=== PATIENT | female | born 1975 | race Caucasian/White ===

== ENCOUNTER 2020-05-12 15:01 | Inpatient (IN) | payer OTHER ==
[~2020-05-12] VITALS: Ht 160 cm; Wt 70.3 kg
[2020-05-12] MEDS ORDERED: FLAGYL500MG (15:08)
--- NOTE | 2020-05-12 15:08 | NUR ---
SE RECIBE PTE ALERTA Y ORIENTADA X3,REFIERE TENER DOLOR ABDOMINAL ,LA REFIERE EL DR.MUNOZ CRAFTCTO A LA RADHAMES DE ER.
== END 2020-05-18 10:48 | disposition home or self-care (01) | DRG 378 ==
LOC: ER 15:01 → SEC-K 16:46 → MEDI 16:46
PROVIDERS: ADMIT Internal Medicine; ATTEND Internal Medicine
PROC: BW21Y0Z Computerized Tomography (CT Scan) of Abdomen and Pelvis using Other Contrast, Unenhanced and Enhanced (ICD-10-PCS; principal; 2020-05-12)
DX: K57.33 Diverticulitis of large intestine without perforation or abscess with bleeding (principal); K51.911 Ulcerative colitis, unspecified with rectal bleeding; I49.8 Other specified cardiac arrhythmias; Z20.828 Contact with and (suspected) exposure to other viral communicable diseases

== ENCOUNTER 2025-02-13 13:56 | Inpatient (IN) | payer OTHER ==
[~2025-02-13] VITALS: Ht 160 cm; Wt 68.0 kg
[~2025-02-13 13:56] MED LIST: FLAGYL500MG
[2025-02-13] MEDS ORDERED: CORGARD80 M1 PO (14:19)
[2025-02-13] MEDS ORDERED: KETOROLAC TROMETHAMINE 30 MG VIAL ONE (15:37)
[2025-02-13] MEDS ORDERED: ONDANSETRON HCL 2 MG/ML VIAL ONE (15:37)
[2025-02-13] MEDS ORDERED: FAMOTIDINE/PF 20 MG/2 ML VIAL ONE (15:38)
[2025-02-13] MEDS ORDERED: FAMOTIDINE/PF 20 MG/2 ML VIAL IV ONE (15:45)
[2025-02-13] MEDS ORDERED: 0.9 % SODIUM CHLORIDE 500 ML IV ONE (15:45)
[2025-02-13] MEDS ORDERED: KETOROLAC TROMETHAMINE 30 MG VIAL IV ONE (15:45)
[2025-02-13] MEDS ORDERED: ONDANSETRON HCL 2 MG/ML VIAL IV ONE (15:45)
[2025-02-13 16:25] LABS: BASO % 0.3 % (0.1-1.2); EOS # 0.03 (0.04-0.54); EOS % 0.2 % (0.7-7.0); HEMATOCRIT 41.4 % (34.1-44.9); HEMOGLOBIN 14.2 g/dL (11.2-15.7); LYMPH # 1.24 (1.18-3.74); LYMPH % 8.6 % (19.3-53.1); MEAN CORPUSCULAR HEMOGLOBIN 29.9 pg (25.6-32.2); MONO # 0.97 (0.24-0.82); MONO % 6.7 % (4.7-12.5); NEUT # 12.06 (1.56-6.13); NEUT % 83.9 % (34.0-71.1); PLATELET COUNT 251 K/uL (163-369); RED BLOOD COUNT 4.75 M/uL (3.93-5.22); RED CELL DISTRIBUTION WIDTH 12.5 % (11.6-14.4)
[2025-02-13 16:33] LABS: PH,URINE 5.5 (5.0-8.0); URINE APPEARANCE Clear; URINE BILIRRUBIN Negative (NEGATIVE); URINE BLOOD Moderate; URINE COLOR Yellow; URINE GLUCOSE Negative (NEGATIVE); URINE LEUKOCYTE Trace; URINE NITRATE Negative; URINE PROTEIN Negative (NEGATIVE); URINE UROBILINOGEN 0.2 E.U./dl
[2025-02-13 16:37] LABS: URINE BACTERIA 124.8 uL (0.0-1933); URINE EPITHELIAL CELLS 4.5 uL (0.0-38.8); URINE RBC 66.1 uL (0.0-20.8)
[2025-02-13 16:38] LABS: INR 1.06; PARTIAL THROMBOPLASTIN TIME 29.8 SECONDS (22.0-34.0); PROTHROMBIN TIME 11.5 SECONDS (9.0-11.5)
[2025-02-13 16:44] LABS: ALBUMIN 3.9 gm/dL (3.4-5.0); BILIRUBIN TOTAL 0.82 mg/dL (0.3-1.2); CALCIUM 8.9 mg/dL (8.5-10.1); CREATININE SERUM 0.72 mg/dL (0.55-1.02); GFR 85.4; POTASSIUM 3.61 mEq/L (3.5-5.1); TOTAL PROTEIN 7.9 gm/dL (6.4-8.2)
[2025-02-13 16:53] LABS: URINE KETONE 40 (NEGATIVE); URINE WBC 0.9 uL (0.0-23.2)
[2025-02-13] MEDS ORDERED: PIPERACILLIN/TAZOBACTAM SODIUM 3.375 GM VIAL IV ONE ×2 (17:45→17:59)
[2025-02-13] MEDS ORDERED: MORPHINE SULFATE 4 MG/ML VIAL IV ONE (19:45)
[2025-02-13] MEDS ORDERED: ONDANSETRON HCL 4 MG in 0.9 % SODIUM CHLORIDE 50 ML IV PRN (21:00)
[2025-02-13] MEDS ORDERED: 0.9 % SODIUM CHLORIDE 1,000 ML IV SCH (21:00)
[2025-02-13] MEDS ORDERED: ACETAMINOPHEN 500 MG GEL..CAP PO PRN (21:00)
[2025-02-13] MEDS ORDERED: MORPHINE SULFATE 2 MG/ML CARTRIDGE IV PRN (21:00)
[2025-02-14] MEDS ORDERED: PIPERACILLIN/TAZOBACTAM SODIUM 3.375 GM in DEXTROSE 5 % IN WATER 100 ML IV SCH
[2025-02-14] MEDS ORDERED: PIPERACILLIN/TAZOBACTAM SODIUM 3.375 GM VIAL IV ONE (00:22)
[2025-02-14 02:53] VITALS: BP 145/79; O2SAT 95
[2025-02-14 08:00] VITALS: BP 127/76; O2SAT 98
[2025-02-14] MEDS ORDERED: ENOXAPARIN SODIUM 40 MG/0.4 ML SYRINGE SUBCUTANEO SCH (09:00)
[2025-02-14] MEDS ORDERED: FAMOTIDINE/PF 20 MG in 0.9 % SODIUM CHLORIDE 8 ML IV PUSH SCH (09:00)
[2025-02-14] MEDS ORDERED: NADOLOL 20 MG TABLET PO SCH (09:00)
[2025-02-14] MEDS ORDERED: KETOROLAC TROMETHAMINE 30 MG VIAL IV PRN (10:45)
[2025-02-14] MEDS ORDERED: KETOROLAC TROMETHAMINE 30 MG VIAL ONE (12:11)
[2025-02-14] MEDS ORDERED: KETOROLAC TROMETHAMINE 30 MG VIAL IV SCH (17:00)
[2025-02-14 17:23] VITALS: BP 133/86
[2025-02-15 01:43] VITALS: BP 115/67; O2SAT 96
[2025-02-15 07:46] LABS: BASO % 0.7 % (0.1-1.2); EOS # 0.19 (0.04-0.54); EOS % 2.2 % (0.7-7.0); HEMATOCRIT 36.7 % (34.1-44.9); HEMOGLOBIN 12.6 g/dL (11.2-15.7); LYMPH # 1.09 (1.18-3.74); LYMPH % 12.7 % (19.3-53.1); MEAN CORPUSCULAR HEMOGLOBIN 30.1 pg (25.6-32.2); MONO # 0.71 (0.24-0.82); MONO % 8.2 % (4.7-12.5); NEUT # 6.53 (1.56-6.13); NEUT % 75.9 % (34.0-71.1); PLATELET COUNT 220 K/uL (163-369); RED BLOOD COUNT 4.19 M/uL (3.93-5.22); RED CELL DISTRIBUTION WIDTH 12.3 % (11.6-14.4)
[2025-02-15 10:14] VITALS: BP 129/72; O2SAT 98
[2025-02-15 17:08] VITALS: BP 136/82
[2025-02-16 01:15] VITALS: BP 122/79
[2025-02-16 09:42] VITALS: BP 133/77; O2SAT 98
== END 2025-02-16 13:29 | disposition home or self-care (01) | DRG 392 ==
LOC: ER 15:13 → MEDI 21:33
PROVIDERS: General Practice; ADMIT Internal Medicine; ATTEND Internal Medicine
PROC: BW21ZZZ Computerized Tomography (CT Scan) of Abdomen and Pelvis (ICD-10-PCS; principal; 2025-02-13)
DX: K57.32 Diverticulitis of large intestine without perforation or abscess without bleeding (principal); I10 Essential (primary) hypertension